=== PATIENT | male | born 1950 | race Caucasian/White ===

== ENCOUNTER 2021-01-27 22:29 | Emergency (ER) | payer MEDICARE, OTHER ==
[~2021-01-27] VITALS: Ht 177.8 cm; Wt 88.0 kg
[~2021-01-27 22:29] MED LIST: AMIO200T6 PO; APIX5TAB PO; ASPI-485 PO; ATEN-94 PO; ATOR40TA PO; BUDE0.253 IH; CLON0.1T PO; COLC0.6C PO; DILT60TA3 PO; DOXY100C2 PO; ESLI400T PO; ESLICARBAZEPINE ACETATE BC; FURO40TA4 PO; GABA300C10 PO; HYDR-3101 PO; Ipratropium/Albuterol Sulfate IH; LAMO100T5 PO; LEVO500T51 PO; MECL-95 PO; METO50TA6 PO; PANT40TA6 PO; POTA10TA6 PO; SERT50TA PO; TEMA15CA6 PO; TRAM50TA PO
[2021-01-27 22:48] VITALS: BP 157/92
[2021-01-27 22:55] VITALS: BP 157/92
--- NOTE | 2021-01-27 22:58 | ER.PDOC ---
General Chief Complaint: Extremities Stated Complaint: POSS BLOOD CLOT IN LEG Time seen by MD: 22:40 Source: patient Exam Limitations: no limitations History of Present Illness Initial Comments This 70-year-old male comes in with a complaint of left calf pain that started at 5 PM today. This is totally completely isolated to his left calf. It appears to be more left lateral muscle belly than anywhere else. He did denies any trauma. Patient was concerned maybe he had developed a DVT so came in to have that checked out. Patient is on Eliquis because of a history of a previous brainstem stroke and some kind of cardiac disease but he does not know exactly what.Patient does complain of chronic neuropathy on the left side of his body for which he uses gabapentin. He states that it is not sure that it helps that much. I did suggest that he consider using Lyrica and recommended that he suggest that to his neurologist and/or PCP. Onset: this afternoon Recent Injury: No Where: home Severity: moderate Exacerbated By: walking movement Relieved By: nothing Allergies: Coded Allergies: Penicillins (Verified Allergy, Severe, "THROAT AND TONGUE SWELLS, I CAN'T BREATH", 11/10/17) Uncoded Allergies: YELLOW JACKET WASP (Allergy, Severe, "THROAT AND TONGUE SWELLS, I CAN'T BREATH", 11/10/17) Home Meds Active Scripts Doxycycline Hyclate (DOXYCYCLINE HYCLATE) 100 Mg Capsule, 100 MG PO BID for 5 Days, #10 CAP Prov:JAJA MARTIN MD 03/25/18 Sertraline Hcl (ZOLOFT) 50 Mg Tablet, 50 MG PO DAILY for 30 Days, #30 TABLET Prov:JAJA MARTIN MD 03/25/18 Atenolol 50MG (TENORMIN 50MG) 50 Mg Tablet, 50 MG PO DAILY24 for HYPERTENSION for 30 Days, #60 TAB Prov:JAJA MARTIN MD 03/25/18 Potassium Chloride (KLOR-CON 10) 10 Meq Tablet.er, 10 MEQ PO DAILY24 for 30 Days, #30 TABLET Prov:JAJA MARTIN MD 12/03/17 Furosemide (FUROSEMIDE) 40 Mg Tablet, 40 MG PO DAILY24 for 30 Days, #30 TAB Prov:JAJA MARTIN MD 12/03/17 Budesonide (PULMICORT) 0.25 Mg/2 Ml Ampul.neb, 0.25 MG IH BID for 30 Days, #60 NEBULE Prov:JAJA MARTIN MD 11/27/17 [Ipratropium/Albuterol Sulfate] 3 ML AMPUL.NEB No Conflict Check, 3 ML IH TID for 14 Days, #50 NEBULE Prov:JAJA MARTIN MD 11/27/17 [Eslicarbazepine Acetate (Aptiom)] 800 No Conflict Check, 800 MG BC BEDTIME Prov:JAJA MARTIN MD 11/27/17 Diltiazem Hcl (CARDIZEM) 60 Mg Tablet, 60 MG PO TID for 14 Days, #42 TABLET Prov:JAJA MARTIN MD 11/27/17 Reported Medications Colchicine (Colchicine) 0.6 Mg Capsule, 0.6 MG PO BID PRN for PRN, CAPSULE 03/16/18 Tramadol Hcl (TRAMADOL HCL) 50 Mg Tablet, 1 TAB PO Q4HR PRN for PAIN, #60 TAB 03/16/18 Amiodarone Hcl (CORDARONE) 200 Mg Tablet, 2 TAB PO BID, #90 TAB 3 Refills 03/16/18 Pantoprazole Sodium (PANTOPRAZOLE SODIUM) 40 Mg Tablet.dr, 40 MG PO DAILY24 for 14 Days 03/16/18 Hydrocodone Bit/Acetaminophen (NORCO 7.5-325) 1 Each Tablet, 1 TAB PO QID PRN for PAIN, #120 TAB 03/16/18 Lamotrigine (LAMICTAL) 100 Mg Tablet, 1 TAB PO BID, #60 TAB 1 Refill 11/10/17 Eslicarbazepine Acetate (Aptiom) 400 Mg Tablet, 400 MG PO DAILY24, TABLET 11/10/17 Aspirin (ASPIR 81) 81 Mg Tablet.dr, 1 TAB PO DAILY, #30 TAB 5 Refills 11/10/17 Gabapentin (GABAPENTIN) 300 Mg Capsule, 1 CAP PO TID, #90 CAP 5 Refills 11/10/17 Atorvastatin 40MG (LIPITOR 40MG) 40 Mg Tablet, 1 TAB PO DAILY, #30 TAB 5 Refills 11/10/17 Apixaban (Eliquis) 5 Mg Tablet, 5 MG PO BID, TABLET 11/10/17 Past Medical History Medical History: arrhythmia, CVA/TIA/stroke, cardiac problems, high c holesterol, other (Patient has a history of A. fib status post a ablation procedure. That is been successful for him and controlled his A. fib well.) Surgical History: cholecystectomy, other Social History Smoking: less than 1 pack/day Drug Use: none Review of Systems Musculoskeletal: see HPI Psychiatric/Neurological: numbness, paresthesia, pre-existing deficit, tingling All Other Systems: Reviewed and Negative Physical Exam General Appearance: Alert, No Apparent Distress Lower Extremity: no pedal edema (Patient has some spasm of his gastroc muscle on the left. It is only on the lateral aspect of the muscle. It is an isolated area. There is no edema in the leg. There is no edema in the foot. There is no evidence of a DVT. This is all muscle spasm.) Joint Exam: joints nml, nml ROM, nml gait/weight bearing Vascular: no vascular compromise, pulses full/equal Neuro/Psych: sensory deficit, asymmetric reflexes Skin: color nml, warm/dry, no rash Back/Neck: nml inspection EENT: eyes inspection nml, ENT inspection nml, pharynx nml Respiratory: no resp distress, breath sounds nml CVS: reg rate & rhythm, heart sounds nml Abdomen: non-tender, no organomegaly, no bruit/mass ER DEPART Departure Time of Disposition: 22:56 Disposition: 01 HOME, SELF-CARE Impression: Primary Impression: Muscle spasm of left calf Condition: Stable Referrals: AMBER ROY (PCP) PRIMARY CARE PROVIDER Comments Flexoril 10mg one po tid prn spasms, #30 Duration or Time Spent with Pa: 15m ROHAN PICKERING MD Jan 27, 2021 22:58
[2021-01-27 23:05] VITALS: BP 162/99
== END 2021-01-27 23:05 | disposition home or self-care (01) ==
LOC: ER 22:29
DX: M62.838 Other muscle spasm (principal); E78.00 Pure hypercholesterolemia, unspecified; F17.210 Nicotine dependence, cigarettes, uncomplicated; I48.91 Unspecified atrial fibrillation; Z79.01 Long term (current) use of anticoagulants; Z79.51 Long term (current) use of inhaled steroids; Z79.82 Long term (current) use of aspirin; Z79.899 Other long term (current) drug therapy; Z86.73 Personal history of transient ischemic attack (TIA), and cerebral infarction without residual deficits; Z88.0 Allergy status to penicillin; Z90.49 Acquired absence of other specified parts of digestive tract
CPT/HCPCS: 99283

== ENCOUNTER 2021-05-11 07:00 | Day surgery (SDC) | payer MEDICARE, OTHER ==
[2021-04-26 14:46] VITALS: BP 132/84
[2021-04-26 15:09] LABS: BASOPHIL # 0.1 10^3/uL (0.0-0.1); BASOPHIL % 0.6 % (0.0-0.2); EOSINOPHIL # 0.2 10^3/uL (0.0-0.2); LYMPHOCYTES # 3.55 10^3/uL1 (1.0-4.8); LYMPHOCYTES % 34.5 % (24.0-44.0); MEAN CORP HGB 32.2 pg (26-34); MONOCYTES # 0.9 10^3/uL (0.3-0.8); MONOCYTES % 9.1 % (5.0-12.0); NEUTROPHIL # 5.5 10^3/uL (1.8-7.7); NEUTROPHILS % 53.7 % (41.0-85.0); PLATELET COUNT 185 10^3/uL (150-400); RED CELL DISTRIBUTION WIDTH 14.5 % (11.5-14.5)
[2021-04-26 15:24] LABS: CARBON DIOXIDE 27.7 mmol/L (20.0-32)
[2021-04-26 15:25] LABS: CALCIUM 9.1 mg/dL (8.4-10.5)
--- NOTE | 2021-04-28 13:50 | PCM.EKG ---
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
[2021-05-11] VITALS (13 sets, daily range): BP systolic 132–159; BP diastolic 68–97
[~2021-05-11] VITALS: Ht 177.8 cm; Wt 87.1 kg
[~2021-05-11 07:00] MED LIST changes: +ACET1TAB34 PO; +ALBU1.25 NEB; +BUDE0.5A NEB; +LACTATED RINGERS 1,000 ML IV SCH; +LACTATED RINGERS 1,000 ML ONE
[2021-05-11] MEDS ORDERED: SODIUM CHLORIDE IRR BOTTLE IR ONE (07:28)
[2021-05-11] MEDS ORDERED: SODIUM CHLORIDE IRR BAG IR ONE (07:28)
[2021-05-11] MEDS ORDERED: EXPAREL 266 MG/20 ML VIAL IJ ONE (08:00)
[2021-05-11] MEDS ORDERED: DILAUDID ONE (08:12)
[2021-05-11] MEDS ORDERED: EPINEPHrine ONE (08:12)
[2021-05-11] MEDS ORDERED: SENSORCAINE-MPF 0.25% VIAL ONE (08:12)
[2021-05-11] MEDS ORDERED: DEXAMETHASONE 10 MG/ML VIAL ONE (08:13)
[2021-05-11] MEDS ORDERED: VENTOLIN HFA IH ONE (08:36)
[2021-05-11] MEDS ORDERED: ANCEF ONE (08:38)
[2021-05-11] MEDS ORDERED: NS 250ML 250 ML IV ONE (08:40)
[2021-05-11] MEDS ORDERED: VANCOMYCIN HCL 1 GM ONE (08:40)
[2021-05-11] MEDS ORDERED: VANCOMYCIN HCL 1 GM in NS 250ML 250 ML IV ONE (08:40)
--- NOTE | 2021-05-11 13:15 | PRM.OPH ---
Immediate Post Op Report Immediate Post Op Report Imediate Post Op Report Preop diagnosis Recurrent right inguinal hernia Postoperative diagnosis Same Procedure Laparoscopic repair of recurrent right inguinal hernia Surgeon Dr. Bernal Anesthesia General EBL Minimal Specimen None Mesh Bard 3D max for the right medium Bard 3D max for the right large Complications None RC BERNAL MD May 11, 2021 13:15
--- NOTE | 2021-05-11 13:28 | PRM.OPH ---
OPERATIVE REPORT OPERATIVE REPORT Procedure The patient was initially seen and identified in the preoperative area. After confirming his identity, H&P, consents, and making sure that all of his questions were answered the patient was transferred from the preop area to the operating theater. [facility] table and placed in supine position. The patient was given general anesthesia, an ileal inguinal block was placed by anesthesia, and a Lindsey catheter placed. The patient's abdomen was prepped with ChloraPrep and a perineal prep done with Betadine was done. Then a sterile field was defect was cut with laparoscopic scissors. Then a piece of the medium 3D max mesh appropriate for the right side was brought into the operative field positioned and tacked into the Rl's ligament and the inguinal ligament. On examination of the lower half trying to decide how best to fix the defect I was concerned that the mesh was not giving appropriate coverage for the inferior portion of the defect so I brought in a second piece of a large right piece of the 3D max mesh for the right side placed it again giving more preference to a covering the lower area making sure there was at least 2 to 3 cm with overhang tacked this into place through the other mesh into Rl's and the inguinal ligament. I then brought up the perineal def ect and tacked it in place and pulled across the median raphae and used tacks to tack it across to closing off the defect.. Standard fashion. An incision above the umbilicus appropriate for a 12 mm trocar was then made. The Veress needle was inserted into the abdominal cavity insufflated to 15 mmHg then using the Optiview system a 12 mm trocar was inserted into the abdominal cavity and confirmed there is no signs of intra-abdominal injury. 1 handsbreadth on either side is just slightly below that level an additional incision was made for 5 mm trocar which was placed under direct visualization on both right and left side. Patient was placed into a steep Trendelenburg position examination left side revealed no signs of recurrence examination of the right side revealed a large direct inguinal hernia. Using laparoscopic scissors and the peritoneum and posterior fascia was excised. Running basically across from midline laterally. Then using blunt dissection we dissected our way down to the area where the recurrence was. Examination of the area revealed that the mesh and the peritoneum was tightly adhered to each other. Making the true posterior very difficult and resulting in a large defect that was created. We dissected then medially superiorly and laterally in order to completely remove the rest of the scar tissue. There was a dense band of tissue that was cut right at the level of the mesh as it had been pulled down posteriorly which ultimately added to the defect. A piece of the medium 3D max mesh for the right side was brought in appropriately positioned and tacked into Rl's and inguinal ligament. And examining the defect to try to determine how best to deal with this defect it became apparent that it did not appear as if we had good inferior coverage of th e lower portion of the defect. [An additional piece of the Bard 3D max mesh this time large for the right side made sure that we had a good 2 to 3 cm overhang inferiorly and tacked it through the other mesh into Rl's ending and into the inguinal ligament. I then brought up the initial peritoneum at the incision site tacked in place with a tacker brought the median raphae across medially laying it over the defect and tacking it into place to cover the defect. Made sure there was no signs of any active or ongoing bleeding before placing the mesh is before closing the peritoneum. We then turned our attention to closing the 12 mL defect we initially passed 1-0 Vicryl suture across the right side of the incision just above the umbilicus attempted to place one on the left but just could not get it to cross the incision because the umbilicus and therefore decided to use a 0 Vicryl suture on a stitch to bring the anterior fascia and posterior fascia at the umbilicus back together in a running fashion. Then the abdomen was deinsufflated the remaining trochars were removed and the skin was closed with 4-0 Monocryl suture. The abdomen was washed and dried and Dermabond placed over the incisions. Patient was handed back to anesthesia to be awoken from general anesthesia transferred back to a stretcher and escorted to the PACU for further recovery along with removal of his Lindsey catheter. The patient has tolerated the procedure well. In the PACU the patient was reporting that the only pain that he was having was there at the umbilicus and the incisions. So the incisions were prepped with alcohol and were injected with approximately 7 mL of Exparel at each location in order to know if this area since the block was not covering the incisions. Band aids were placed over the injection sites. RC GARCIA MD May 11, 2021 13:28
== END 2021-05-11 15:19 | disposition home or self-care (01) ==
LOC: SDC 07:00
PROVIDERS: ATTEND Surgery
DX: K40.91 Unilateral inguinal hernia, without obstruction or gangrene, recurrent (principal); I25.10 Atherosclerotic heart disease of native coronary artery without angina pectoris; F17.210 Nicotine dependence, cigarettes, uncomplicated; E66.3 Overweight; I10 Essential (primary) hypertension; J43.9 Emphysema, unspecified; Z86.73 Personal history of transient ischemic attack (TIA), and cerebral infarction without residual deficits; Z98.1 Arthrodesis status; Z79.01 Long term (current) use of anticoagulants; Z79.82 Long term (current) use of aspirin; Z79.899 Other long term (current) drug therapy; Z88.0 Allergy status to penicillin
CPT/HCPCS: 36415; 49651; 80053; 85025; 85610; 85730; 93005; A4217; C1787; J0171; J0690; J1100; J1170; J3370 ×2; J3490; J7050 ×2; J7120; J7611; C1781; C9290